=== PATIENT | male | born 1975 | race Caucasian/White ===

== ENCOUNTER 2018-05-17 19:18 | Emergency (ER) | payer SELFPAY ==
[~2018-05-17] VITALS: Ht 172.7 cm; Wt 95.5 kg
[2018-05-17 19:32] VITALS: BP 133/77; PULSE 71; RESP 16; Ht 172.7 cm; Wt 95.5 kg
== END 2018-05-17 19:37 | disposition left against medical advice (07) ==
LOC: E/R 19:18
DX: Z53.21 Procedure and treatment not carried out due to patient leaving prior to being seen by health care provider (principal)